=== PATIENT | female | born 1985 | race Caucasian/White ===

== ENCOUNTER 2016-10-10 15:22 | Day surgery (SDC) | payer BC, OTHER ==
[~2016-10-10] VITALS: Ht 167.6 cm; Wt 85.0 kg
[~2016-10-10 15:22] MED LIST: PREN1TAB73 PO
--- OUTSIDE RECORDS SUMMARY | 2016-10-10 15:26 | XMS REPORT | Referral Summary ---
Author Author [facility], [facility] Organization [facility] Address Unknown Phone Unavailable Care Team Providers Care Risk Management Specialist Name Role Phone No PCP, States Primary Care Physician [phone] Encounter Date(s): 04/16/15 - 04/16/15 [facility] [address] [place] [address] Discharge Diagnosis: Body aches Discharge Diagnosis: Headache Discharge Diagnosis: Tobacco use Discharge Disposition: 01-Home or Self Care Attending Physician: Orion Cifuentes PA-C Admitting Physician: Orion Cifuentes PA-C Vital Signs Most recent to 1 oldest [Reference Range]: Temperature Tympanic 36.5 degC [36.6-38.1 degC] *LOW* (04/16/15 4:02 PM) Apical Heart Rate 78 bpm [60-100 bpm] (04/16/15 4:02 PM) Blood Pressure 122/76 mmHg [90-140/60-90 mmHg] (04/16/15 4:02 PM) SpO2 98 % (04/16/15 4:02 PM) Problem List Condition Effective Dates Status Health Status Informant Allergies(Confirmed) Active History of < 05/01/14 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) Allergies, Adverse Reactions, Alerts Substance Reaction Severity Status Ceclor Hives Active Medications No Known Medications Results No data available for this section Immunizations Vaccine Date Refusal Reason hepatitis B adult vaccine 04/30/98 influenza virus vaccine, inactivated1 05/01/14 pneumococcal 23-polyvalent vaccine 05/01/14 tetanus/diphtheria/pertussis, acel(Tdap)2 05/17/08 1Result Comment: [05/01/2014] see scanned document 2Result Comment: [05/15/2014] done in 2008 Procedures Procedure Date Related Diagnosis Body Site Laser vaporization 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 Win 2twice Social History Social History Type Response Smoking Status Current every day smoker; Tobacco use per day: Pack Assessment and Plan No data available for this section
--- OUTSIDE RECORDS SUMMARY | 2016-10-10 15:26 | XMS REPORT | Referral Summary ---
Author Author [facility] Organization [facility] Address Unknown Phone Unavailable Care Team Providers Care Windows Security Analyst Name Role Phone No PCP, States Primary Care Physician [phone] Encounter [facility] [id number] Date(s): 06/29/16 - 06/29/16 [facility], [address] [place] [address] Discharge Diagnosis: Impetigo Discharge Disposition: 01-Home or Self Care Attending Physician: Jose Alfredo Gutierrez MD Admitting Physician: Jose Alfredo Gutierrez MD Vital Signs Most recent to 1 oldest [Reference Range]: Blood Pressure 110/80 mmHg [90-140/60-90 mmHg] (06/29/16 2:17 PM) Problem List Condition Effective Dates Status Health Status Informant Allergies(Confirmed) Active History of < 05/01/14 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) Obesity(Confirmed) Active patient Allergies, Adverse Reactions, Alerts Substance Reaction Severity Status Ceclor Hives Active Medications Bactrim DS 800 mg-160 mg oral tablet 1 tabs, Oral, BID, X 10 days, # 20 tabs, 0 Refill(s), Pharmacy: [facility] #[id number] Start Date: 06/29/16 Stop Date: 07/09/16 Status: Ordered mupirocin 2% topical ointment 1 laurence, Topical, BID, to lesions on face, # 22 g, 0 Refill(s), Pharmacy: [facility] #[id number] Start Date: 06/29/16 Status: Ordered Results No data available for this section Immunizations Given and Recorded Vaccine Date Status Refusal Reason hepatitis B adult vaccine 04/30/98 Recorded influenza virus vaccine, inactivated1 05/01/14 Recorded pneumococcal 23-polyvalent vaccine 05/01/14 Given tetanus/diphtheria/pertussis, acel(Tdap)2 05/17/08 Recorded 1Result Comment: [05/01/2014] see scanned document 2Result Comment: [05/15/2014] done in 2009 Procedures Procedure Date Related Diagnosis Body Site Laser vaporization 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 Win 2twice Social History Social History Type Response Smoking Status Current every day smoker; Tobacco use per day: Pack Assessment and Plan Extracted from: Title: Ambulatory Patient Education Author: Jose Alfredo Gutierrez MD Date: Infectious Disease Impetigo, Adult Impetigo is an infection of the skin. It commonly occurs in young children, but it can also occur in adults. The infection causes itchy blisters and sores that produce brownish-yellow fluid. As the fluid dries, it forms a thick, honey- colored crust. These skin changes usually occur on the face but can also affect other areas of the body. Impetigo usually goes away in 710 days with treatment. CAUSES Impetigo is caused by two types of bacteria. It may be caused by staphylococci or streptococci bacteria. These bacteria cause impetigo when they get under the surface of the skin. This often happens after some damage to the skin, such as damage from: Cuts, scrapes, or scratches. Insect bites, especially when you scratch the area of a bite. Chickenpox or other illnesses that cause open skin sores. Nail biting or chewing. Impetigo is contagious and can spread easily from one person to another. This may occur through close skin contact or by sharing towels, clothing, or other items with a person who has the infection. RISK FACTORS Some things that can increase the risk of getting this infection include: Playing sports that include pydr-ur-jcvq contact with others. Having a skin condition with open sores. Having many skin cuts or scrapes. Living in an area that has high humidity levels. Having poor hygiene. Having high levels of staphylococci in your nose. SIGNS AND SYMPTOMS Impetigo usually starts out as small blisters, often on the face. The blisters then break open and turn into tiny sores (lesions) with a yellow crust. In some cases, the blisters cause itching or burning. With scratching, irritation, or lack of treatment, these small lesions may get larger. Scratching can also cause impetigo to spread to other parts of the body. The bacteria can get under the fingernails and spread when you touch another area of your skin. Other possible symptoms include: Larger blisters. Pus. Swollen lymph glands. DIAGNOSIS This condition is usually diagnosed during a physical exam. A skin sample or sample of fluid from a blister may be taken for lab tests that involve growing bacteria (culture test). This can help confirm the diagnosis or help determine the best treatment. TREATMENT Mild impetigo can be treated with prescription antibiotic cream. Oral antibiotic medicine may be used in more severe cases. Medicines for itching may also be used. HOME CARE INSTRUCTIONS Take medicines only as directed by your health care provider. To help prevent impetigo from spreading to other body areas: Keep your fingernails short and clean. Do not scratch the blisters or sores. Cover infected areas, if necessary, to keep from scratching. Gently wash the infected areas with antibiotic soap and water. Soak crusted areas in warm, soapy water using antibiotic soap. Gently rub the areas to remove crusts. Do not scrub. Wash your hands often to avoid spreading this infection. Stay home until you have used an antibiotic cream for 48 hours (2 days) or an oral antibiotic medicine for 24 hours (1 day). You should only return to work and activities with other people if your skin shows significant improvement. PREVENTION To keep the infection from spreading: Stay home until you have used an antibiotic cream for 48 hours or an oral antibiotic for 24 hours. Wash your hands often. Do not engage in mvnb-ja-dald contact with other people while you have still have blisters. Do not share towels, washcloths, or bedding with others while you have the infection. SEEK MEDICAL CARE IF: You develop more blisters or sores despite treatment. Other family members get sores. Your skin sores are not improving after 48 hours of treatment. You have a fever. SEEK IMMEDIATE MEDICAL CARE IF: You see spreading redness or swelling of the skin around your sores. You see red streaks coming from your sores. You develop a sore throat. This information is not intended to replace advice given to you by your health care provider. Make sure you discuss any questions you have with your health care provider. Document Released: 05/24/2015 Document Reviewed: 05/24/2015 [employer] Interactive Patient Education 2016 [employer] No follow up information was provided. Extracted from: Title: Office Visit Note Author: Jose Alfredo Gutierrez MD Date: 06/29/16 Assessment/Plan Impetigo Bactroban ointment bidfor five days. Bactrim DS po bid for five days. A work/school note was offered and deferred by the patient. RTC if not improved.
--- OUTSIDE RECORDS SUMMARY | 2016-10-10 15:26 | XMS REPORT | Continuity of Care Document ---
Author Author [facility] Organization [facility] Address Unknown Phone Unavailable Support Name Relationship Address Phone MELLISA DE SOUZA MD Caregiver [address] [place] [address] [place] [address] Unavailable SOFI CRUZ Caregiver [address] [place] [address] Unavailable SUMMER KIRILL ALBERTO Next Of Kin [address] [place], [place] [id number] Insurance Providers Guarantor Joey Reagan Address [address] [place] [address] Email DENIED/NO PT PORTAL Payer [facility] Policy Number [id number] Subscriber's Name Joey Reagan Relationship 18 Self Group Number [id number] Advance Directives Directive Response Recorded Date/Time Ordered Resuscitation Status Full Code 10/07/15 6:17pm Resuscitation Documents on File No 10/07/15 6:22pm DPOA for Healthcare Only No 10/07/15 6:22pm Problems Active Problems Medical Problem Onset Date Status Endometritis Unknown Acute Endometritis Unknown Acute Medications Current Home Medications Medication Dose Units Route Directions Days Qty Instructions Start Date Pnv95/Ferrous Fumarate/Fa ( Tablet) 1 Each Tablet 1 Tab Oral Daily 90 Tablet 08/26/15 Past Home Medications Medication Directions Ordered Status Acetaminophen/Dp-Hydram Hcl (Tylenol P.m. Ex-Str Caplet) 1 Tab Tablet, 1 Tab Oral After Meals 12/13/08 Discontinued Norethindrone-Ethinyl Estrad (Nortrel) 1 Tab Tablet, 1 Tab Oral Daily Discontinued Vits W-Ca,Fe,Fa(<1MG) ( Vitamins) 1 Tab Tablet, 3 Tab Oral Daily 12/13/08 Discontinued Social History Social History Problem Response Recorded Date/Time Onset Date Status Hx Substance Use No 10/08/2013 5:40am Not Applicable Not Applicable Hx Alcohol Use No 10/08/2013 5:40am Not Applicable Not Applicable Has the pt used tobacco in the last 12 months Yes 10/07/2015 6:27pm Not Applicable Not Applicable Tobacco Usage smoke 09/11/2013 5:43am Not Applicable Not Applicable Query Response Start Date Stop Date Smoking Status Unknown if ever smoked Hospital Discharge Instructions Instructions: Care Instructions: Reason for Hospitalization: missed , first trimester I was in the hospital because (patient own words): D&c Discharge Diet: regular Discharge Activity: as tolerated Follow Up Appointments: Follow up with in 3-4 weeks Pending Lab / Results: No Pending Lab Patient Instructions: nothing in the vagina x 2 weeks Notify Physician If: T> 100.5 heavy bleeding any other concerns General Information: Discharge when patient meets criteria and voiding Condition at time of discharge: Good Plan of Care Discharge Date 10/07/15 11:11pm Instructions/Education Provided DI for a Dilation and Curettage Prescriptions See Medication Section Functional Status Query Response Date Recorded Mobility Status Ambulatory October 07, 2015 6:29pm Assistive Devices None October 07, 2015 6:29pm Activity Limitations None October 07, 2015 6:29pm Feeding Ability Independent October 07, 2015 6:29pm Toileting Ability Independent October 07, 2015 6:29pm Grooming Ability Independent October 07, 2015 6:29pm Dressing Ability Independent October 07, 2015 6:29pm Driving Ability Independent October 07, 2015 6:29pm Housework Ability Independent October 07, 2015 6:29pm Meal Preparation Ability Independent October 07, 2015 6:29pm Stair Climbing Ability Independent October 07, 2015 6:29pm Ability to complete ADL's impeded by No change October 07, 2015 6:29pm Cognitive/Perceptual Impairments Impaired vision October 07, 2015 6:29pm Visual Assistive Devices Glasses With patient October 07, 2015 6:29pm Preferred Method of Learning Hands on October 07, 2015 6:29pm Allergies, Adverse Reactions, Alerts Allergen Type Severity Reaction Status Last Updated Cefaclor Allergy Severe HIVES Active 10/07/15 Immunizations Query Response on File Recorded Date/Time Hx Influenza Vaccination No 10/07/15 6:27pm Hx Pneumococcal Vaccination No 10/07/15 6:27pm Hx Influenza Vaccination No 10/07/15 6:27pm Vital Signs Acute Vital Signs Vital Response Date/Time Temperature (Fahrenheit) 97.7 deg F (96.8 - 99.1) 10/07/2015 9:35pm Temperature (Calculated Celsius) 36.41317 degrees C (36.0 - 37.3) 10/07/2015 9:35pm Temperature Source Temporal 10/07/2015 9:35pm Pulse Rate (adult) 66 bpm (60 - 100) 10/07/2015 10:50pm Respiratory Rate 16 breaths/min (10 - 20) 10/07/2015 9:35pm O2 Sat by Pulse Oximetry 98 % (90 - 100) 10/07/2015 10:50pm Oxygen Delivery Method Room Air 10/07/2015 10:50pm Oxygen Delivery Method Room Air 10/07/2015 9:20pm Blood Pressure 119/76 mm Hg 10/07/2015 10:50pm Blood Pressure Source Automatic Cuff 10/07/2015 10:50pm Height (Feet) 5 feet 10/07/2015 6:21pm Height (Inches) 6.00 inches 10/07/2015 6:21pm Weight (Kilograms) 85.400 kg 10/07/2015 6:21pm Body Mass Index (BMI) 30.4 10/07/2015 6:21pm Results Laboratory Results Test Name Result Units Flags Reference Collection Date/Time Result Date/ Time Comments Thyroid Stimulating Hormone (TSH) 0.71 MIU/L 0.47-4.68 08/26/2015 3: 16pm 08/26/2015 4:18pm Urinalysis Comment MICROSCOPIC NOT IND. 08/26/2015 6:18pm 2015 6:48pm White Blood Count 8.6 T/MM3 4.5-11.0 10/07/2015 7:05pm 10/07/2015 7: 20pm Red Blood Count 4.07 M/MM3 4.00-5.20 10/07/2015 7:05pm 10/07/2015 7: 20pm Hemoglobin 12.5 GM/DL 12-16 10/07/2015 7:05pm 10/07/2015 7:20pm Hematocrit 36.4 % 36-46 10/07/2015 7:05pm 10/07/2015 7:20pm Mean Corpuscular Volume 89.4 UM3 80-100 10/07/2015 7:05pm 10/07/2015 7: 20pm Mean Corpuscular Hemoglobin 30.7 UUG 26-34 10/07/2015 7:05pm 2015 7:20pm Mean Corpuscular Hemoglobin Concent 34.3 GM/DL 31-37 10/07/2015 7:05pm 10/07/2015 7:20pm RDW Standard Deviation 40.8 FL 36.9-50.2 10/07/2015 7:05pm 10/07/2015 7 :20pm Platelet Count 401 T/MM3 H 130-400 10/07/2015 7:05pm 10/07/2015 7:20pm Mean Platelet Volume 9.9 UM3 9.4-12.4 10/07/2015 7:05pm 10/07/2015 7: 20pm Neutrophils (%) (Auto) 63.1 % 33-66 10/07/2015 7:05pm 10/07/2015 7: 20pm Lymphocytes (%) (Auto) 27.9 % 23-45 10/07/2015 7:05pm 10/07/2015 7: 20pm Monocytes (%) (Auto) 6.6 % 0-9.0 10/07/2015 7:05pm 10/07/2015 7:20pm Eosinophils (%) (Auto) 2.0 % 0-4 10/07/2015 7:05pm 10/07/2015 7:20pm Basophils (%) (Auto) 0.2 % 0-2 10/07/2015 7:0510/07/2015 7:20pm Immature Granulocyte % (Auto) 0.2 % 0.0-0.5 10/07/2015 7:05pm 2015 7:20pm Absolute Neutrophils (auto) 5.4 T/MM3 1.8-7.7 10/07/2015 7:05pm 2015 7:20pm Absolute Lymphocytes (auto) 2.4 T/MM3 1-4.8 10/07/2015 7:05pm 2015 7:20pm Absolute Monocytes (auto) 0.6 T/MM3 0-0.8 10/07/2015 7:05pm 10/07/2015 7:20pm Absolute Eosinophils (auto) 0.2 T/MM3 0-0.5 10/07/2015 7:05pm 2015 7:20pm Absolute Basophils (auto) 0.0 T/MM3 0-0.2 10/07/2015 7:05pm 10/07/2015 7:20pm Absolute Immature Granulocyte (auto 0.02 T/MM3 0.00-0.03 10/07/2015 7: 05pm 10/07/2015 7:20pm Urine Collection Type CLEANCATCH-MIDSTREAM 10/07/2015 7:38pm 2015 7:47pm Urine Color YELLOW YELLOW 10/07/2015 7:38pm 10/07/2015 7:47pm Urine Turbidity SL CLOUDY CLEAR 10/07/2015 7:38pm 10/07/2015 7:47pm Urine Specific [place] 1.025 1.015-1.025 10/07/2015 7:38pm 2015 7:47pm Urine pH 6.5 5.0-8.0 10/07/2015 7:38pm 10/07/2015 7:47pm Urine Leukocyte Esterase NEGATIVE NEGATIVE 10/07/2015 7:38pm 2015 7:47pm Urine Nitrite NEGATIVE NEGATIVE 10/07/2015 7:38pm 10/07/2015 7:47pm Urine Protein NEGATIVE NEGATIVE 10/07/2015 7:38pm 10/07/2015 7:47pm Urine Glucose (UA) NEGATIVE NEGATIVE 10/07/2015 7:38pm 10/07/2015 7: 47pm Urine Ketones NEGATIVE NEGATIVE 10/07/2015 7:38pm 10/07/2015 7:47pm Urine Urobilinogen 0.2 EU/DL NORMAL 10/07/2015 7:38pm 10/07/2015 7: 47pm Urine Bilirubin NEGATIVE NEGATIVE 10/07/2015 7:38pm 10/07/2015 7: 47pm Urine Blood 3+ A NEGATIVE 10/07/2015 7:38pm 10/07/2015 7:47pm Urine WBC 1-3 /HPF 0-5 10/07/2015 7:38pm 10/07/2015 8:03pm Urine RBC 20-30 /HPF H 0-3 10/07/2015 7:38pm 10/07/2015 8:03pm Urine Squamous Epithelial Cells 5-10 10/07/2015 7:38pm 10/07/2015 8 :03pm Urine Bacteria 1+ H NEGATIVE 10/07/2015 7:38pm 10/07/2015 8:03pm Urine Mucus PRESENT 10/07/2015 7:38pm 10/07/2015 8:03pm Urine Culture Indicated CULT NOT INDICATED 10/07/2015 7:38pm 2015 8:03pm Procedures Procedure Status Date Provider(s) COLLECT BLOOD FROM PICC Completed 08/26/15 PÉREZ PINA APRN URINALYSIS AUTO W/O SCOPE Completed 08/26/15 ASSAY THYROID STIM HORMONE Completed 08/26/15 COMPLETE CBC W/AUTO DIFF WBC Completed 08/26/15 HYDRATION IV INFUSION INIT Completed 08/26/15 HYDRATE IV INFUSION ADD-ON Completed 08/26/15 636383"INFUSION, NORMAL SALINE SOLUTION , 1000 CC" Completed 08/26/15 377999"INFUSION, NORMAL SALINE SOLUTION , 1000 CC" Completed 08/26/15 Encounters Encounter Location Arrival/Admit Date Discharge/Depart Date Attending Provider [facility] 10/07/15 6:06pm 10/07/15 11 :11pm MELLISA DE SOUZA MD Departed [facility] 08/26/15 2:10pm 08/26/15 6:30pm PÉREZ PINA APRN
[2016-10-10] MEDS ORDERED: NORMAL SALINE 1,000 ML IV ONE (15:41)
[2016-10-10] MEDS ORDERED: KETOROLAC 30mg/ml INJECTION IV ONE (15:45)
[2016-10-10] MEDS ORDERED: NO ROUTINE MEDS (15:55)
[2016-10-10] MEDS ORDERED: ACET-62 PO (15:55)
[2016-10-10] MEDS ORDERED: IBUP-1724 PO (15:55)
[2016-10-10 16:15] LABS: BLOOD, URINE NEGATIVE (NEGATIVE); COLOR,URINE YELLOW (YELLOW); LEUKOCYTE ESTERASE ,URINE NEGATIVE (NEGATIVE); NITRITE,URINE NEGATIVE (NEGATIVE); UROBILINOGEN,URINE 0.2 EU/DL (NORMAL)
[2016-10-10 16:20] LABS: BASOPHILS # (AUTO) 0.1 T/MM3 (0-0.2); BASOPHILS % (AUTO) 1.1 % (0-2); EOSINOPHILS # (AUTO) 0.2 T/MM3 (0-0.5); EOSINOPHILS % (AUTO) 2.5 % (0-4); HCT - HEMATOCRIT 36.1 % (36-46); HGB - HEMOGLOBIN 11.7 GM/DL (12-16); IMMATURE GRANULOCYTE # (AUTO) 0.01 T/MM3 (0.00-0.03); IMMATURE GRANULOCYTE % (AUTO) 0.1 % (0.0-0.5); LYMPHOCYTES # (AUTO) 2.5 T/MM3 (1-4.8); MEAN CORPUSCULAR HGB 27.6 UUG (26-34); MEAN CORPUSCULAR HGB CONC(MCHC 32.4 GM/DL (31-37); MEAN CORPUSCULAR VOLUME 85.1 UM3 (80-100); MEAN PLATELET VOLUME 10.3 UM3 (9.4-12.4); MONOCYTES # (AUTO) 0.7 T/MM3 (0-0.8); MONOCYTES % (AUTO) 8.8 % (0-9.0); NEUTROPHILS #(AUTO)-ABSOLUTE 4.4 T/MM3 (1.8-7.7); NEUTROPHILS % (AUTO) 55.5 % (33-66); RED BLOOD COUNT 4.24 M/MM3 (4.00-5.20); WBC - WHITE BLOOD COUNT 7.9 T/MM3 (4.5-11.0)
[2016-10-10 16:24] LABS: ALBUMIN 4.2 G/DL (3.5-5.0); ALBUMIN/GLOBULIN RATIO 1.4 RATIO (1.1-2.2); ALKALINE PHOSPHATASE 67 U/L (38-126); ALT (SGPT) 44 U/L (9-52); ANION GAP 14 MEQ/L (5-15); AST (SGOT) 19 U/L (14-36); BUN/CREATININE RATIO 16 RATIO (6-26); CALCIUM 9.7 MG/DL (8.4-10.2); CHLORIDE 108 MEQ/L (98-107); CO2 - CARBON DIOXIDE 23 MEQ/L (22-30); CREATININE 0.7 MG/DL (0.7-1.2); GLOMERULAR FILTRATION RATE 98; GLUCOSE 95 MG/DL (65-110); LIPASE 68 U/L (23-300); POTASSIUM 4.2 MEQ/L (3.6-5); SODIUM 145 MEQ/L (134-144); TOTAL PROTEIN 7.1 G/DL (6.3-8.2)
--- NOTE | 2016-10-10 16:28 | ERPDOC ---
Departure Disposition Decision Date: October 10, 2016 Disposition Decision Time: 17:37 Disposition: 01 DISCHARGED HOME, SELF-CARE Impression Impression Impression: Primary Impression: Acute appendicitis Acute appendicitis type: unspecified acute appendicitis type Qualified Codes : K35.80 - Unspecified acute appendicitis Severity: Moderate Condition: Stable Seen By: Physician only Referrals: SOFI CRUZ (Family) Problems/Meds/Labs Reviewed?: Yes Medications reviewed and manag: Yes Follow up care ordered?: Yes Mental Status: Alert, Oriented HPI - Back Pain General Chief Complaint: Low Back Pain or Injury Stated Complaint: BACK/ABDOMINAL PAIN Time Seen by Provider: 15:36 HPI - Back Pain Initial Comments 31-year-old female with sudden onset right lower quadrant and flank pain. Pain radiates into right buttock and right thigh. She felt fine yesterday, did not have any abnormal activities or injuries. However today she has developed this lower right pain which is an 8 out of 10. She cannot get comfortable, finds that reclining on her left side with her knees up under her seems to be the best she can find. She has no fever or chills, no dysuria hesitancy or urgency. Is not constipated. No diarrhea nausea or vomiting. She still has her appendix and gallbladder. Pain does not radiate down the leg beyond mid thigh. However pain does feel somewhat electric in nature Allergies: Coded Allergies: cefaclor (Verified Allergy, Severe, HIVES, 10/10/16) Past History Past Medical History Pt denies signifigant PMH Hx Echocardiogram: No Surgical History Reproductive/: Family History Family PMH: FOUND: other Vaccines Hx Influenza Vaccination: No Hx Pneumococcal Vaccination: No Social History Does patient use chewing tobac: No Sexuality: male partner Review of Systems General: see HPI Musculoskeletal General: see HPI Neurological General: see HPI All other Systems All Other Systems: Reviewed and Negative Physical Exam General General Nourishment: well nourished, well developed, appears stated age Distress Description Apparent discomfort Vitals and Pain First Documented Vital Signs Date Time Temp Pulse Resp B/P Pulse Ox O2 Delivery O2 Flow Rate FiO2 10/10/16 15:26 97.9 74 17 147/73 97 Room Air Weight: Kilograms: 83.400 Height (feet): 5 Height (inches): 6.00 Triage Pain Scale: Normal Exams: Head: Normocephalic w/o trauma Eyes: Pupils are PERRLA w/ EOMI, No scleral icterus, irritation, or foreign bodies noted Neck: Full range of motion, without adenopathy, JVD, bruits or thyromegaly Chest/Resp: Clear all palmer, with good airflow, and symmetry bilaterally CV: Regular rate and rhythm, without murmur or gallop, Pulses 2+ all extremities, capillary refill, <2 seconds all ext., no pedal edema noted Neurologic: Patient is alert, and oriented, cranial nerves, motor/sensory/ cerebellar, exams w/o gross deficits, to observation Psychiatric: Patient exhibits, appropriate attention, emotion and affect Abdomen (brief) Comments Very mild tenderness right lower quadrant Musculoskeletal (brief) Comments Tenderness paraspinal muscles lumbar spine, SI joint bilateral. Differential Diagnoses Considering: Disc Herniation, Compression Fracture, Lumbar Sprain, Lumbar Strain, Ovarian Cyst, Pyelonephritis, UTI Progress Results/Orders Orders Procedure Category Date Status Time Iv Lock (Ed Only) EDM 10/10/16 Transmitted 15:41 Nothing By Mouth (Ed EDM 10/10/16 Transmitted Only) 15:41 Cbc W/Auto LAB 10/10/16 Complete Diff-Reflex Manual 15:41 Cmp - Comprehensive LAB 10/10/16 Complete Metabolic 15:41 Lipase LAB 10/10/16 Complete 15:41 LAB 10/10/16 Complete Qualitative, Urine 15:41 Ua, Dip Wreflex LAB 10/10/16 Complete Microsc & Horticulture Supervisor 15:41 Ct Abd/Pelvis W/O CT 10/10/16 Taken Contrast 15:41 Normal Saline (Normal PHA 10/10/16 Complete Saline Iv) 15:41 Ketorolac (Toradol) PHA 10/10/16 Complete 15:45 Lab Results Laboratory Tests Test 10/10/16 15:56 White Blood Count 7.9T/MM3 Red Blood Count 4.24M/MM3 Hemoglobin 11.7GM/DL Hematocrit 36.1% Mean Corpuscular Volume 85.1UM3 Mean Corpuscular Hemoglobin 27.6UUG Mean Corpuscular Hemoglobin Concent 32.4GM/DL RDW Standard Deviation 47.9FL Platelet Count 620T/MM3 Mean Platelet Volume 10.3UM3 Immature Granulocyte % (Auto) 0.1% Neutrophils (%) (Auto) 55.5% Lymphocytes (%) (Auto) 32.0% Monocytes (%) (Auto) 8.8% Eosinophils (%) (Auto) 2.5% Basophils (%) (Auto) 1.1% Absolute Immature Granulocyte (auto 0.01T/MM3 Absolute Neutrophils (auto) 4.4T/MM3 Absolute Lymphocytes (auto) 2.5T/MM3 Absolute Monocytes (auto) 0.7T/MM3 Absolute Eosinophils (auto) 0.2T/MM3 Absolute Basophils (auto) 0.1T/MM3 Urine Collection Type Cleancatch-midstream Urine Color Yellow Urine Turbidity Sl cloudy Urine pH 6.0 Urine Specific [place] 1.020 Urine Protein Negative Urine Glucose (UA) Negative Urine Ketones Negative Urine Blood Negative Urine Nitrite Negative Urine Bilirubin Negative Urine Urobilinogen 0.2EU/DL Urine Leukocyte Esterase Negative Urinalysis Comment Microscopic not ind. Urine Test Negative Turbidity < 20 Sodium Level 145MEQ/L Potassium Level 4.2MEQ/L Chloride Level 108MEQ/L Carbon Dioxide Level 23MEQ/L Anion Gap 14MEQ/L Blood Urea Nitrogen 11.0MG/DL Creatinine 0.7MG/DL Glomerular Filtration Rate Calc 98 BUN/Creatinine Ratio 16RATIO Glucose Level 95MG/DL Calculated Osmolality 278MOSM/KG Calcium Level 9.7MG/DL Total Bilirubin 0.30MG/DL Icterus Index < 2 Aspartate Amino Transf (AST/SGOT) 19U/L Alanine Aminotransferase (ALT/SGPT) 44U/L Alkaline Phosphatase 67U/L Total Protein 7.1G/DL Albumin 4.2G/DL Globulin 2.9G/DL Albumin/Globulin Ratio 1.4RATIO Lipase 68U/L Chemistry Specimen Hemolysis < 15 Medications Current ED Medications Sodium Chloride (Normal Saline IV) 1,000 ml @ 1,000 mls/hr Q1H ONCE IV Last administered on 10/10/16 16:03; Start 10/10/16 at 15:41; Stop 10/10/16 at 16:40 ; Status DC Ketorolac Tromethamine (Toradol) 30 mg O ONCE IV Last administered on 16:03; Start 10/10/16 at 15:45; Stop 10/10/16 at 15:46; Status DC Progress Progress WBC normal at 7.9. Patient does have slightly elevated platelet count. Chemistries are appropriate, UA is negative. Patient was given oral saline 1 L and 30 mg Toradol IV. She is much more comfortable at this time. CT abdomen and pelvis showed likely early appendicitis with enlarged appendix of 6.[address] Choi was consulted and gave the patient the option of admitting her to the hospital with plan to remove appendix in the a.m. or treating her outpatient with antibiotics. She spoke with family and they came to a consensus that she should have the surgery performed. Therefore she would like to have it done in the morning. At this time her pain is 3 out of 10. Last meal was approximately 1 PM, she has had neither food or drink since that time. She'll be admitted to the hospital with IV Levaquin and Flagyl, clears until midnight, nothing by mouth after midnight. Dr. Choi will see her tomorrow. MORIAH RICHARD MD October 10, 2016 16:28
[2016-10-10] MEDS ORDERED: LEVOFLOXACIN 500 mg IVPB 500 MG in D5W 100 ML IV SCH (17:45)
[2016-10-10] MEDS ORDERED: MORPHINE SULFATE 2 MG SYRINGE IV PRN (17:45)
[2016-10-10] MEDS ORDERED: ONDANSETRON 4mg/2ml INJECTION IV PRN (17:45)
--- NOTE | 2016-10-10 17:50 | NUR ---
REPORT REPORT GIVEN TO KIRSTEN HARDIN ON SURGICAL UNIT.
--- NOTE | 2016-10-10 18:03 | NUR ---
ADMIT ARRIVES TO ROOM 111 VIA WHEELCHAIR FROM ER. PATIENT TRANSFERRED SELF FROM WHEELCHAIR TO BED. ALERT AND ORIENTED X3. O2 RA. VITAL SIGNS STABLE. PATIENTS MOTHER AT BEDSIDE. PATIENT ORIENTED TO SURROUNDINGS. BED IN LOWEST POSITION, CALL LIGHT WITHIN REACH, SIDE RAILS UP X2.
[2016-10-10 18:07] VITALS: Ht 167.6 cm; Wt 85.0 kg
[2016-10-10 18:09] VITALS: BP 126/75; PULSE 69; RESP 16; TEMP 97.7; O2SAT 98
[2016-10-10] MEDS: NORMAL SALINE 500 ML IV PRN (18:19)
--- NOTE | 2016-10-10 19:03 | NUR ---
PROGRESS NOTE THIS RN SPOKE WITH DR. GOMES; PT REPORTED ITCHING UP LEFT ARM ABOVE IV SITE THAT WAS INFUSING LEVAQUIN. THIS RN RECEIVED ORDERS TO STOP THE LEVAQUIN MID DOSE AND RECEIVED ORDERS FOR BENADRYL 100MG PO ONE TIME, ZOFRAN 4MG Q6H PRN NAUSEA, AND TO REPEAT A CBC IN THE AM AT 0700. PT IS RESTING IN BED, IV FLUIDS WERE STOPPED. NO OTHER CONCERNS NOTED AT THIS TIME. WILL CONTINUE TO MONITOR. PT ALERT AND ORIENTED X3. VITAL SIGNS STABLE, PT ON RA.
[2016-10-10 20:02] VITALS: PULSE 69; RESP 16
[2016-10-11] MEDS: NORMAL SALINE 500 ML IV PRN ×2 (00:45→09:46)
[2016-10-11] MEDS: METRONIDAZOLE IVPB 500 MG in NORMAL SALINE 100 ML IV SCH ×2 (00:45→09:52)
[2016-10-11 01:07] VITALS: BP 120/67; PULSE 64; RESP 12; TEMP 96.6; O2SAT 99
[2016-10-11 05:14] LABS: BASOPHILS # (AUTO) 0.1 T/MM3 (0-0.2); BASOPHILS % (AUTO) 1.2 % (0-2); EOSINOPHILS # (AUTO) 0.2 T/MM3 (0-0.5); EOSINOPHILS % (AUTO) 2.9 % (0-4); HCT - HEMATOCRIT 34.9 % (36-46); HGB - HEMOGLOBIN 11.2 GM/DL (12-16); LYMPHOCYTES % (AUTO) 43.3 % (23-45); MEAN CORPUSCULAR HGB 28.1 UUG (26-34); MEAN CORPUSCULAR HGB CONC(MCHC 32.1 GM/DL (31-37); MEAN CORPUSCULAR VOLUME 87.7 UM3 (80-100); MEAN PLATELET VOLUME 10.6 UM3 (9.4-12.4); MONOCYTES # (AUTO) 0.5 T/MM3 (0-0.8); MONOCYTES % (AUTO) 7.8 % (0-9.0); NEUTROPHILS #(AUTO)-ABSOLUTE 3.1 T/MM3 (1.8-7.7); NEUTROPHILS % (AUTO) 44.8 % (33-66); RED BLOOD COUNT 3.98 M/MM3 (4.00-5.20); WBC - WHITE BLOOD COUNT 6.9 T/MM3 (4.5-11.0)
--- NOTE | 2016-10-11 05:32 | NUR ---
SHIFT SUMMARY PT ALERT AND ORIENTED X3, VITAL SIGNS ARE STABLE ON ROOM AIR. DENIES C/P,N/V AND SOA. PT IS UP ADLIB TO AND FROM THE BATHROOM AND CALLS FOR ASSISTANCE NEEDED. PRN PAIN MEDICATION GIVEN ONCE ON SHIFT AND IS MANAGED WELL AT THIS TIME. 1ST DOSE OF FLAGYL GIVEN WITHOUT ANY ADVERSE REACTIONS. PT HAS HAD ADEQUATE URINE OUTPUT AND HAS BEEN NPO OVERNIGHT. WILL CONTINUE TO MONITOR.
[2016-10-11 07:30] VITALS: BP 125/81; PULSE 62; RESP 16; TEMP 97.4; O2SAT 98
--- NOTE | 2016-10-11 09:03 | DI ---
Indication: ITS.REASON: rlq pain PROCEDURE: CT ABD/PELVIS W/O CONTRAST: Encounter: Initial Comparison: None Technique: Axial CT images were performed through the abdomen and pelvis without intravenous contrast. Coronal and sagittal two-dimensional reformats. Automated Exposure Control and Iterative Reconstruction dose reducing techniques were utilized. Findings: The lung bases are clear. The unenhanced contours of the liver are grossly normal. The gallbladder, spleen, pancreas and adrenal glands are within normal limits. Kidneys subtle faint calyceal density which could be due to urine concentration or less likely medullary sponge kidney. No discrete renal stones. The appendix is normal in a retrocecal location. No evidence of bowel obstruction. Bladder, uterus, right ovary and rectum are unremarkable. 3 cm left ovarian cyst or follicle. Probably physiologic. No free fluid. Bone windows are normal. Impression: No evidence of acute appendicitis. No acute disease process seen. There is a preliminary report by [employer]. .
--- NOTE | 2016-10-11 16:08 | NUR ---
DISMISSAL PATIENT DISMISSED TO HOME FOR SELF-CARE TO THE MAIN HOSPITAL ENTRANCE. PT AMBULATORY. PATIENT'S WAS THE [facility] HOME. PT DOES NOT APPEAR TO BE IN ACUTE DISTRESS AT TIME OF DISCHARGE. ROOM AIR. PERSONAL BELONGINGS RETURNED PRIOR TO D/C. IV CATHETER REMOVED AND IV CATHETER TIP INTACT. ARM BAND REMOVED AND PLACED IN SHRED. DC INSTRUCTIONS REVIEWED PRIOR TO DC. TOPICS DISCUSSED INCLUDED: PRN FOLLOW UP APPOINTMENT, S/S TO REPORT, ABDOMINAL PAIN, S/S OF INFECTION. BOTH PT AND VERBALIZED UNDERSTANDING.
--- NOTE | 2016-10-11 16:09 | HPF ---
DATE OF ADMISSION 10/10/2016 DATE OF VISIT 10/11/2016 REASON FOR ADMISSION Right lower quadrant abdominal pain with possible appendicitis. HISTORY OF PRESENT ILLNESS Ondina is a 31-year-old female who presented to the emergency department yesterday evening with right lower quadrant pain that had started as right back pain. The pain began yesterday morning after breakfast. It initially started in the right lower back as a small spot above her "hip bone." Her pain progressed and as it progressed it moved around to the right lower quadrant and into the right upper thigh. She described it as crampy or achy pain. It was there constantly. It increased up to 8 out of 10 in severity. She tried Tylenol and ibuprofen without any relief. She also tried a heating pad and an ice pack but they did not help with the pain. She came to the emergency department and received a dose of Toradol which did help significantly with the pain. She has not been in any real pain since but she did take a dose of morphine overnight. Since her dose of morphine she denies any significant pain. Through the whole process she has not had any nausea, vomiting, diarrhea or constipation. In the emergency department she had a CT scan done and the preliminary radiology report had raised the question of early appendicitis. Because of this she was admitted to the hospital to be observed and see if she needed surgery. PAST MEDICAL HISTORY The patient denies any significant medical history. PAST SURGICAL HISTORY 1. - 2006. 2. - 2008. 3. 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 ALLERGIES Cefaclor. MEDICATIONS The patient uses ibuprofen on an as-needed basis. SOCIAL HISTORY The patient is . She is a aqqv-buae-t-day smoker. She drinks alcohol rarely. She denies illicit drug use. FAMILY HISTORY Mother - type 2 diabetes mellitus. Father - myocardial infarction x 5, diabetes mellitus. Maternal grandmother, living - lung cancer. Maternal grandfather, - type 2 diabetes mellitus, emphysema, COPD. Paternal grandfather, - stroke. Paternal grandmother - diabetes mellitus, coronary artery disease. REVIEW OF SYSTEMS 10 point review of systems was negative except for History of Present Illness and the following. GENERAL: She does report hot flashes and headaches. PSYCHIATRIC: She reports some anxiety and depression but this has not been treated. LABORATORY DATA White blood cell count in the emergency department was 7.9. Repeat today was 6.9. There is no left shift. UA was negative for blood. IMAGING CT scan of the abdomen and pelvis from 10/10/2016 was personally reviewed by me. The appendix appeared normal and was in a retrocecal position. I did not see evidence of surrounding inflammation to indicate acute appendicitis. Radiology overread today showed no acute disease process in the abdomen and pelvis and was reportedly negative for acute appendicitis. PHYSICAL EXAMINATION VITAL SIGNS: Temperature 97.4, pulse 62, blood pressure 125/81, respiratory rate 16, oxygen saturation 98%. GENERAL: The patient is awake, alert, in no acute distress. HEENT: Sclerae clear. Extraocular muscles intact. NECK: Supple with a midline trachea. No lymphadenopathy or thyromegaly are noted. HEART: Regular rate and rhythm. LUNGS: Clear to auscultation bilaterally. ABDOMEN: Soft, minimally tender in the right lower quadrant, no guarding or rebound noted. Obturator, Rovsing and psoas signs were negative. She has no right costovertebral angle tenderness. EXTREMITIES: No clubbing, cyanosis or edema. NEUROLOGIC: Cranial nerves II-XII are grossly intact. PSYCHIATRIC: Normal mood and affect. IMPRESSION Right lower quadrant pain of uncertain etiology. I would favor an etiology more of gastroenteritis but I do not feel that this represents acute appendicitis on physical exam. Her laboratory and imaging findings also would not confirm or support acute appendicitis. Her process seems to have resolved overnight. PLAN 1. She was started on Levaquin and Flagyl but her Levaquin was stopped mid dose when she had some itching around the IV site. I did discuss with her and her family whether or not she would want Levaquin listed as an allergy since the reaction was mild and it was unclear if it was directly related to the Levaquin. She already has an allergy to cefaclor and so I was not sure if she wanted to eliminate another drug class. She wanted to hold off on listing Levaquin as an allergy. 2. DC IV fluids. 3. I will advance her to a regular diet. If she tolerates this without increase in her symptoms I think she could be dismissed home. 4. She can followup with me on an as-needed basis. She was given a business card. 5. I told the patient and her family that I did not feel that surgery for laparoscopic appendectomy would be of benefit since I do not feel that the process was acute appendicitis. After explanation of my opinion they were in agreement to avoid surgery. [id number]
== END 2016-10-11 16:08 | disposition home or self-care (01) ==
LOC: ED 15:22 → SRG 17:40 → SCU 17:40
PROVIDERS: ATTEND Surgery
DX: R10.31 Right lower quadrant pain (principal); L29.8 Other pruritus; Z88.1 Allergy status to other antibiotic agents; F17.210 Nicotine dependence, cigarettes, uncomplicated; Z79.1 Long term (current) use of non-steroidal anti-inflammatories (NSAID)
CPT/HCPCS: 36415; 74176; 80053; 81003; 81025; 83690; 85025; 96361; 96365; 96366; 96375; 99284; J1885; J1956; J7030; J7050; J7060